=== PATIENT | male | born 1960 | race Caucasian/White ===

== ENCOUNTER 2018-01-09 21:48 | Emergency (ER) | payer SELFPAY ==
[2018-01-09 22:31] VITALS: O2SAT 98
[2018-01-09 23:54] LABS: BASO % 0.6 % (0.0-2.0); EOS # 0.1 K/uL (0.0-0.7); EOS % 2.8 % (0.0-4.0); HEMOGLOBIN 13.6 g/dL (12.0-18.0); LYMPH # 2.4 K/uL (1.0-4.3); LYMPH % 44.9 % (20.0-40.0); MEAN CELL VOLUME 87.9 fL (80.0-94.0); MEAN CORPUSCULAR HEMOGLOBIN 30.4 pg (27.0-31.0); MEAN CORPUSCULAR HGB CONC 34.6 g/dL (33.0-37.0); MEAN PLATELET VOLUME 8.8 fL (7.2-11.7); MONO # 0.4 K/uL (0.0-0.8); MONO % 8.3 % (0.0-10.0); NEUT # 2.3 K/uL (1.8-7.0); NEUT % 43.4 % (50.0-75.0); NRBC % 0.1 % (0.0-2.0); RBC 4.46 Mil/uL (4.40-5.90); RED CELL DISTRIBUTION WIDTH 12.6 % (11.5-14.5); WHITE BLOOD COUNT 5.3 K/uL (4.8-10.8)
--- NOTE | 2018-01-10 00:16 | C.PDOC ---
History Of Present Illness 57 year old male presents to the ED c/o chest pain that started earlier today. Patient denies SOB, fever, chills, cough, medical problems. Chief Complaint (Nursing): Chest Pain History Per: Patient History/Exam Limitations: no limitations Onset/Duration Of Symptoms: Hrs Current Symptoms Are (Timing): Still Present Associated Symptoms: Nausea Modifying Factors: None Exacerbating Factors: None Alleviating Factors: None Recent travel outside of the [place]: No Additional History Per: Patient Past Medical History Reviewed: Historical Data, Nursing Documentation, Vital Signs Vital Signs: Last Vital Signs Temp 97.9 F 01/09/18 22:15 Pulse 69 01/09/18 22:15 Resp 20 01/09/18 22:15 BP 136/88 01/09/18 22:15 Pulse Ox 98 01/10/18 00:18 - Medical History PMH: HTN, Hypercholesterolemia Surgical History: Back Surgery Family History: States: Unknown Family Hx - Social History Hx Tobacco Use: No Hx Alcohol Use: Yes Hx Substance Use: No - Immunization History Hx Tetanus Toxoid Vaccination: No Hx Influenza Vaccination: No Hx Pneumococcal Vaccination: No Review Of Systems Constitutional: Negative for: Fever, Chills Cardiovascular: Positive for: Chest Pain. Negative for: Palpitations Respiratory: Negative for: Cough, Shortness of Breath Gastrointestinal: Negative for: Nausea, Vomiting, Abdominal Pain Skin: Negative for: Rash Neurological: Negative for: Weakness, Numbness, Headache, Dizziness Physical Exam - Physical Exam Appears: Non-toxic, No Acute Distress Skin: Normal Color, Warm, Dry Head: Atraumatic, Normacephalic Nose: No Discharge, No Deformity Oral Mucosa: Moist Neck: Normal ROM, Supple Chest: Symmetrical Cardiovascular: Rhythm Regular, No Murmur Respiratory: Normal Breath Sounds, No Rales, No Rhonchi, No Wheezing Gastrointestinal/Abdominal: Soft, No Tenderness, No Guarding, No Rebound Extremity: Normal ROM, No Pedal Edema, No Deformity, No Swelling Neurological/Psych: Oriented x3, Normal Speech, Normal Cognition Gait: Steady ED Course And Treatment - Laboratory Results Result Diagrams: 01/09/18 23:51 01/09/18 23:51 ECG: Interpreted By Me, Viewed By Me ECG Rhythm: Sinus Rhythm, 1st Degree HB Interpretation Of ECst degree AV Block Rate From EC O2 Sat by Pulse Oximetry: 98 (On RA) Pulse Ox Interpretation: Normal Medical Decision Making Medical Decision Making: Impression: chest pain Plan: * EKG * Labs * CXR Disposition - Disposition Referrals: [facility] [Outside] [facility] [Outside] Disposition: HOME/ ROUTINE Disposition Time: 00:30 Condition: GOOD Additional Instructions: Thank you for letting us take care of you today. The emergency medical care you received today was directed at your acute symptoms. If you were prescribed any medication, please fill it and take as directed. It may take several days for your symptoms to resolve. Return to the Emergency Department if your symptoms worsen, do not improve, or if you have any other problems. Please contact your doctor or call one of the physicians/clinics you have been referred to that are listed on the Patient Visit Information form that is included in your discharge packet. Bring any paperwork you were given at discharge with you along with any medications you are taking to your follow up visit. Our treatment cannot replace ongoing medical care by a primary care provider (PCP) outside of the emergency department. Thank you for allowing the [facility] team to be part of your care today. Follow up next week in the clinic for outpatient care. Kathe por dejarnos atenderlo hoy. La atencin mdica de emergencia que recibi hoy estaba dirigida a mary lou sntomas agudos. Si le prescribieron algn medicamento, llnelo y tome segn las indicaciones. Mary Lou sntomas pueden tardar varios lerma en resolverse. Regrese al Departamento de Emergencia si mary lou s ntomas empeoran, no mejoran o si tiene algn otro problema. Comunquese con short mdico o llame a peyman de los mdicos / clnicas a los que lara sido referido que figura en el formulario de Informacin de visita del paciente que se incluye en short paquete de salty. Traiga todos los documentos que recibi al momento del salty junto con los medicamentos que est tomando en short visita de seguimiento. Nuestro tratamiento no puede reemplazar la atencin mdica en curso por parte de un proveedor de atencin primaria (PCP) fuera del departamento de emergencias. Kathe por permitir que el equipo de [facility] sea parte de short cuidado hoy. Seguimiento la prxima semana en la clnica para atencin ambulatoria. Instructions: Noncardiac Chest Pain (ED) Forms: Gen Discharge Inst [place] Islander Print Language: CZECH - Clinical Impression Clinical Impression: Non-cardiac chest pain - Scribe Statement The provider has reviewed the documentation as recorded by the Scribe Edwin Jiménez All medical record entries made by the Scribe were at my direction and personally dictated by me. I have reviewed the chart and agree that the record accurately reflects my personal performance of the history, physical exam, medical decision making, and the department course for this patient. I have also personally directed, reviewed, and agree with the discharge instructions and disposition.
[2018-01-10 00:19] LABS: ALB/GLOB RATIO 1.3 (1.0-2.1); ALBUMIN 4.7 g/dL (3.5-5.0); ALT/SGPT 43 U/L (21-72); AST/SGOT 23 U/L (17-59); BLOOD UREA NITROGEN 15 mg/dL (9-20); CALCIUM 9.4 mg/dl (8.6-10.4); GFR AFRICAN-AMERICAN > 60; GFR NON-AFRICAN AMERICAN > 60
[2018-01-10 00:50] VITALS: BP 135/86; PULSE 86; RESP 16; TEMP 98
--- NOTE | 2018-01-10 08:52 | RAD ---
HISTORY: chest pain COMPARISON: Chest x-ray performed 08/01/15. TECHNIQUE: Chest, one view. FINDINGS: LUNGS: No focal consolidation. Please note that chest x-ray has limited sensitivity for the detection of pulmonary masses. PLEURA: No significant pleural effusion identified. No definite pneumothorax . CARDIOVASCULAR: Heart size appears within normal limits. OSSEOUS STRUCTURES: No acute osseous abnormality identified. VISUALIZED UPPER ABDOMEN: Unremarkable. OTHER FINDINGS: None. IMPRESSION: No focal consolidation, significant pleural effusion, or definite pneumothorax identified.
--- NOTE | 2018-01-11 14:36 | CARD ---
APPROVED REPORT EKG Measurement Heart [id number] <Conclusion> Normal sinus rhythm Normal ECG
== END 2018-01-10 00:50 | disposition home or self-care (01) ==
LOC: C.ER 21:48
DX: R07.89 Other chest pain (principal)

== ENCOUNTER 2018-06-04 23:56 | Emergency (ER) | payer SELFPAY ==
[2018-06-05 00:30] VITALS: RESP 16; O2SAT 100
--- NOTE | 2018-06-05 01:40 | C.PDOC ---
History Of Present Illness 57 year old male with no significant PMHx presents to the ED c/o persistent SOB for the past month. Patient reports he was seen in [place] for the same complaints with normal labs and imaging. Patient is also c/o " numbness to his bilateral legs". Patient reports he was not given information at [place] for follow up. Patient denies CP, weakness, fever, chills, nausea, vomit. Time Seen by Provider: 06/05/18 00:54 Chief Complaint (Nursing): Shortness Of Breath History Per: Patient History/Exam Limitations: no limitations Onset/Duration Of Symptoms: Days Current Symptoms Are (Timing): Still Present Initiating Event: Other Quality: "Pain" Reports Recently: Seen In ED ([place] 20 days ago) Recent travel outside of the [place]: No Additional History Per: Patient Past Medical History Reviewed: Historical Data, Nursing Documentation, Vital Signs Vital Signs: Last Vital Signs Temp 98.6 F 06/05/18 06:09 Pulse 78 06/05/18 06:09 Resp 16 06/05/18 06:09 BP 165/79 H 06/05/18 06:09 Pulse Ox 100 06/05/18 06:09 - Medical History PMH: HTN, Hypercholesterolemia Surgical History: Back Surgery Family History: States: Unknown Family Hx - Social History Hx Tobacco Use: No Hx Alcohol Use: Yes Hx Substance Use: No - Immunization History Hx Tetanus Toxoid Vaccination: No Hx Influenza Vaccination: No Hx Pneumococcal Vaccination: No Review Of Systems Constitutional: Negative for: Fever, Chills Cardiovascular: Negative for: Chest Pain, Palpitations Respiratory: Positive for: Shortness of Breath. Negative for: Cough Gastrointestinal: Negative for: Vomiting, Abdominal Pain Skin: Negative for: Rash Physical Exam - Physical Exam Appears: Non-toxic, No Acute Distress Skin: Normal Color, Warm, Dry Head: Atraumatic, Normacephalic Eye(s): bilateral: Normal Inspection Oral Mucosa: Moist Neck: Normal ROM, Supple Chest: Symmetrical Cardiovascular: Rhythm Regular Respiratory: Normal Breath Sounds, No Rales, No Rhonchi, No Wheezing Gastrointestinal/Abdominal: Soft, No Tenderness, No Guarding, No Rebound Extremity: Normal ROM, No Tenderness, No Swelling Neurological/Psych: Oriented x3, Normal Speech Gait: Steady ED Course And Treatment - Laboratory Results Result Diagrams: 06/05/18 02:06 06/05/18 02:06 ECG: Interpreted By Me, Viewed By Me ECG Rhythm: Sinus Rhythm ECG Interpretation: Normal, No Acute Changes Rate From EC (BPM) O2 Sat by Pulse Oximetry: 100 (ON RA) Pulse Ox Interpretation: Normal - CT Scan/US CTA chest Other Rad Studies (CT/US): Read By Radiologist, Radiology Report Reviewed CT/US Interpretation: EXAM: CT Angiography Chest With Intravenous Contrast. CLINICAL HISTORY: 57 years old, male; Pain; Chest pain; Additional info: SOB. TECHNIQUE: Axial computed tomographic angiography images of the chest with intravenous contrast using. pulmonary embolism protocol. All CT scans at this facility use at least one of these dose optimization. techniques: automated exposure control; mA and/or kV adjustment per patient size (includes targeted. exams where dose is matched to clinical indication); or iterative reconstruction. 911 images are. submitted. Axial reformatted images are submitted in mediastinal and lung windows. MIP reconstructed images were created and reviewed. Coronal and sagittal reformatted images were created and reviewed. CONTRAST: 100 mL of [id number] administered intravenously. COMPARISON: No relevant prior studies available. FINDINGS: Pulmonary arteries : The pulmonary artery enhancement is less than 182 Hounsfield units and. heterogeneous enhancement which limits the examination. The segmental and subsegmental branch. pulmonary arteries are degraded by respiratory motion artifact and heterogeneous enhancement. As. shown no central pulmonary embolus is noted. Aorta: Ascending aortic aneurysm or ectasia measuring 3.7 cm. The arch and the descending. thoracic aorta demonstrate normal caliber. There is normal enhancement of the aorta. 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 Lungs: The visualized portions of major airways are patent. No mass. Pleural space: Unremarkable. No significant effusion. No pneumothorax. Heart: There is trace fluid in the superior pericardial recess. Possible cardiomegaly. Bones/joints: There is a disc osteophyte complex at T10-T11. No acute fracture. No dislocation. Soft tissues: Bilateral gynecomastia. Lymph nodes: Unremarkable. No enlarged lymph nodes. Stomach and bowel: Diverticulosis. Large amount of stool in the colon. Appendix: Normal appendix. IMPRESSION: 1. The pulmonary artery enhancement is less than 182 Hounsfield units and heterogeneous. enhancement which limits the examination. The segmental and subsegmental branch pulmonary. arteries are degraded by respiratory motion artifact and heterogeneous enhancement. As shown no. central pulmonary embolus is noted. 2. No active disease. Thank you for allowing us to participate in the care of your patient. Dictated and Authenticated by: Bruna Macias MD. 06/05/2018 5:40 AM Eastern Time ([place] & [place]) Medical Decision Making Medical Decision Making: Impression: SOB Plan: * EKG * Labs * CXR Disposition - Disposition Referrals: [facility] [Outside] Disposition: HOME/ ROUTINE Disposition Time: 06:27 Condition: FAIR Instructions: Shortness of Breath (Dyspnea) (DC) Forms: Shyp (Hebrew) Print Language: VIETNAMESE - Clinical Impression Clinical Impression: Dyspnea - Scribe Statement The provider has reviewed the documentation as recorded by the Scribe Edwin Jiménez All medical record entries made by the Scribe were at my direction and personally dictated by me. I have reviewed the chart and agree that the record accurately reflects my personal performance of the history, physical exam, medical decision making, and the department course for this patient. I have also personally directed, reviewed, and agree with the discharge instructions and disposition.
[2018-06-05 02:09] LABS: BASO % 0.7 % (0.0-2.0); EOS # 0.2 K/uL (0.0-0.7); EOS % 2.7 % (0.0-4.0); HEMOGLOBIN 13.4 g/dL (12.0-18.0); LYMPH # 3.1 K/uL (1.0-4.3); LYMPH % 43.4 % (20.0-40.0); MEAN CELL VOLUME 89.1 fL (80.0-94.0); MEAN CORPUSCULAR HEMOGLOBIN 29.7 pg (27.0-31.0); MEAN CORPUSCULAR HGB CONC 33.3 g/dL (33.0-37.0); MEAN PLATELET VOLUME 8.6 fL (7.2-11.7); MONO # 0.5 K/uL (0.0-0.8); MONO % 7.4 % (0.0-10.0); NEUT # 3.3 K/uL (1.8-7.0); NEUT % 45.8 % (50.0-75.0); NRBC % 0.1 % (0.0-2.0); RBC 4.49 Mil/uL (4.40-5.90); RED CELL DISTRIBUTION WIDTH 12.8 % (11.5-14.5); WHITE BLOOD COUNT 7.2 K/uL (4.8-10.8)
[2018-06-05 02:31] LABS: BLOOD UREA NITROGEN 18 mg/dL (9-20); GFR AFRICAN-AMERICAN > 60; GFR NON-AFRICAN AMERICAN > 60
[2018-06-05 02:32] LABS: ALB/GLOB RATIO 1.5 (1.0-2.1); ALBUMIN 4.8 g/dL (3.5-5.0); ALT/SGPT 53 U/L (21-72); AST/SGOT 27 U/L (17-59); B-TYPE NATRIURETIC PEPTIDE 29.3 pg/mL (0-900); CALCIUM 9.8 mg/dl (8.6-10.4)
[2018-06-05] MEDS ORDERED: Barium Sulfate for Susp 98% w/w 340g Bottle ONE (03:17)
[2018-06-05] MEDS ORDERED: Iodixanol 320 MG/ML 100 ML BOTTLE IV ONE (03:18)
[2018-06-05 06:10] VITALS: BP 165/79; PULSE 78; TEMP 98.6
--- NOTE | 2018-06-05 12:19 | CT ---
PROCEDURE: CT Chest with contrast (Pulmonary Angiogram) HISTORY: Shortness of breath COMPARISON: None available. TECHNIQUE: Axial computed tomography images were obtained of the chest in the pulmonary arterial phase of enhancement. Coronal and sagittal reformatted images were created and reviewed. Intravenous contrast dose: 100 cc Visipaque 320 Radiation dose: Total exam DLP = 342.12 mGy-cm. This CT exam was performed using one or more of the following dose reduction techniques: Automated exposure control, adjustment of the mA and/or kV according to patient size, and/or use of iterative reconstruction technique. FINDINGS: PULMONARY ARTERIES: Suboptimal enhancement limiting evaluation. No evidence of central pulmonary embolus however. Note that the distal segmental and proximal subsegmental branches are poorly delineated pulmonary trunk measures approximately 22 mm. AORTA: No acute findings. No thoracic aortic aneurysm. Ascending thoracic aorta measures approximately 3.7 cm and descending thoracic aorta measures approximately 2.26 cm LUNGS: Unremarkable. No nodule, mass or pulmonary consolidation. PLEURAL SPACES: Unremarkable. No effusion or pneumothorax. HEART: Heart size normal . There appears to be a small amount of fluid within the cleft between the ascending thoracic aorta and pulmonary trunk as well as superior pericardial recess LYMPH NODES: No lymphadenopathy. BONES, CHEST WALL: . Minor multilevel degenerative spondylosis of the thoracic spine. There are no acute compression fractures no retropulsed fragments. Chronic appearing Schmorl's node changes seen along superior L2 endplate Minor changes of gynecomastia. OTHER FINDINGS: Unremarkable. IMPRESSION: Slightly limited study. No evidence of acute central pulmonary embolus
--- NOTE | 2018-06-05 16:18 | RAD ---
PROCEDURE: CHEST RADIOGRAPH, 1 VIEW HISTORY: SOB COMPARISON: Comparison chest 01/09/2018 FINDINGS: LUNGS: Clear. PLEURA: No pneumothorax or pleural fluid seen. CARDIOVASCULAR: Normal. OSSEOUS STRUCTURES: No significant abnormalities. VISUALIZED UPPER ABDOMEN: Normal. OTHER FINDINGS: None. IMPRESSION: No active disease.
== END 2018-06-05 06:12 | disposition home or self-care (01) ==
LOC: C.ER 23:56
DX: R06.00 Dyspnea, unspecified (principal)
CPT/HCPCS: 71045; 71275; 80053; 83880; 84484; 85025; 85378; 99284; Q9967

== ENCOUNTER 2018-06-05 12:14 | Emergency (ER) | payer SELFPAY ==
[2018-06-05 12:26] VITALS: RESP 18; TEMP 98
[2018-06-05] MEDS ORDERED: Albuterol 0.083% Inhal Sol (2.5 mg/3 mL) UD IH STA (12:38)
[2018-06-05] MEDS ORDERED: Albuterol 0.083% Inhal Sol (2.5 mg/3 mL) UD ONE (13:05)
[2018-06-05 13:19] LABS: BASO # 0.1 K/uL (0.0-0.2); BASO % 1.1 % (0.0-2.0); EOS # 0.1 K/uL (0.0-0.7); EOS % 1.5 % (0.0-4.0); HEMOGLOBIN 14.9 g/dL (12.0-18.0); LYMPH # 1.8 K/uL (1.0-4.3); LYMPH % 31.9 % (20.0-40.0); MEAN CELL VOLUME 88.7 fL (80.0-94.0); MEAN CORPUSCULAR HEMOGLOBIN 30.3 pg (27.0-31.0); MEAN CORPUSCULAR HGB CONC 34.2 g/dL (33.0-37.0); MEAN PLATELET VOLUME 8.7 fL (7.2-11.7); MONO # 0.5 K/uL (0.0-0.8); NEUT # 3.1 K/uL (1.8-7.0); NEUT % 56.5 % (50.0-75.0); RBC 4.9 Mil/uL (4.40-5.90); RED CELL DISTRIBUTION WIDTH 12.7 % (11.5-14.5); WHITE BLOOD COUNT 5.5 K/uL (4.8-10.8)
[2018-06-05 13:37] LABS: ALB/GLOB RATIO 1.3 (1.0-2.1); ALBUMIN 5.2 g/dL (3.5-5.0); ALT/SGPT 50 U/L (21-72); AST/SGOT 27 U/L (17-59); BLOOD UREA NITROGEN 14 mg/dL (9-20); CALCIUM 10.4 mg/dl (8.6-10.4); GFR AFRICAN-AMERICAN > 60; GFR NON-AFRICAN AMERICAN > 60
[2018-06-05] MEDS ORDERED: Albuterol-Ipratrop 3 mg / 0.5 (3 ml) UD ONE ×2 (13:38→15:34)
[2018-06-05 13:41] LABS: B-TYPE NATRIURETIC PEPTIDE 48.2 pg/mL (0-900); CK-MB 1.54 ng/mL (0.0-3.38)
[2018-06-05 14:08] VITALS: O2SAT 100
--- NOTE | 2018-06-05 14:26 | NM ---
COMPARISON: June 05, 2018. CT angiogram for pulmonary embolism. Summary of findings on the comparison examination: No evidence of acute central pulmonary embolus TECHNIQUE: 6.6 mCi technetium 99-m Xe-133 Gas. 0.2 mCI technetium 99-m MAA administered intravenously. FINDINGS: VENTILATION COMPONENT: Normal. PERFUSION COMPONENT: Heterogeneous distribution of radionuclide. No geographic, segmental, lobar abnormalities apparent on the present examination. IMPRESSION: Low probability ventilation perfusion scan for pulmonary embolism.
--- NOTE | 2018-06-05 14:59 | C.PDOC ---
History Of Present Illness 57 year old male brought to the ED by EMS for evaluation. Patient states he was at the [facility] when he started feeling generalized weakness and some shortness of breath. Patient was seen overnight in the ER for similar complaints , blood work and CTA chest were done, both unremarkable. Patient denies chest pain, palpitations, syncope, cough, fever, visual changes, nausea, vomiting, facial droop, slurred speech, extremity weakness, gait changes. Time Seen by Provider: 06/05/18 12:16 Chief Complaint (Nursing): Syncope History Per: Patient History/Exam Limitations: no limitations Onset/Duration Of Symptoms: Hrs Current Symptoms Are (Timing): Still Present Past Medical History Reviewed: Historical Data, Nursing Documentation, Vital Signs Vital Signs: Last Vital Signs Temp 98 F 06/05/18 15:35 Pulse 70 06/05/18 15:35 Resp 18 06/05/18 15:35 BP 167/96 H 06/05/18 15:35 Pulse Ox 100 06/05/18 15:35 - Medical History PMH: HTN, Hypercholesterolemia Surgical History: Back Surgery Family History: States: No Known Family Hx - Social History Hx Tobacco Use: No Hx Alcohol Use: Yes Hx Substance Use: No - Immunization History Hx Tetanus Toxoid Vaccination: No Hx Influenza Vaccination: No Hx Pneumococcal Vaccination: No Review Of Systems Constitutional: Positive for: Weakness Cardiovascular: Negative for: Chest Pain, Palpitations Respiratory: Positive for: Shortness of Breath. Negative for: Cough Gastrointestinal: Negative for: Nausea, Vomiting, Abdominal Pain, Diarrhea Neurological: Negative for: Weakness, Numbness, Change in Speech, Altered Mental Status, Headache, Dizziness Physical Exam - Physical Exam Appears: Well, Non-toxic, Other (appears mildly uncomfortable, speaking in full sentences) Skin: Normal Color, Warm, Dry, No Rash Head: Atraumatic, Normacephalic Eye(s): bilateral: Normal Inspection, PERRL, EOMI Oral Mucosa: Moist Neck: Supple Cardiovascular: Rhythm Regular Respiratory: Normal Breath Sounds, No Rales, No Rhonchi, No Wheezing Gastrointestinal/Abdominal: Normal Exam, Bowel Sounds, Soft, No Tenderness Extremity: Normal ROM, No Pedal Edema, No Calf Tenderness Pulses: Left Dorsalis Pedis: Normal, Right Dorsalis Pedis: Normal Neurological/Psych: Oriented x3, Normal Speech, Normal Cognition, Normal Cranial Nerves, No Cerebellar Signs, Normal Motor, Normal Sensation, Normal Reflexes Gait: Steady ED Course And Treatment - Laboratory Results Result Diagrams: 06/05/18 13:13 06/05/18 13:13 ECG: Interpreted By Me, Viewed By Me ECG Rhythm: Sinus Rhythm ECG Interpretation: Normal Interpretation Of ECG: Normal sinus rhythm, normal axis, no acute ST/T changes Rate From EC (bpm) O2 Sat by Pulse Oximetry: 100 (RA) Pulse Ox Interpretation: Normal - CT Scan/US VQ SCAN Other Rad Studies (CT/US): Read By Radiologist, Radiology Report Reviewed CT/US Interpretation: Accession No. : [id number]. Patient Name / ID : MARIALUISA BUTLER / [id number]. Exam Date : 06/05/2018 13:23:23 ( Approved ). Study Comment : Sex / Age : M / [id number]. Creator : Nadir Calabrese MD. Dictator : Nadir Calabrese MD. Cyber Security Architect : Direct Mail Manager : Nadir Calabrese MD. Approver2 : Report Date : 06/05/2018 14:24:42. My Comment : . COMPARISON: June 05, 2018. CT angiogram for pulmonary embolism. Summary of findings on the comparison examination: No evidence of acute central pulmonary embolus. TECHNIQUE: 6.6 mCi technetium 99-m Xe-133 Gas. 0.2 mCI technetium 99-m MAA administered intravenously. FINDINGS: VENTILATION COMPONENT: Normal. PERFUSION COMPONENT: Heterogeneous distribution of radionuclide. No geographic, segmental, lobar abnormalities apparent on the present examination. IMPRESSION: Low probability ventilation perfusion scan for pulmonary embolism. Progress Note: Blood work, EKG ordered and reviewed. Prior visit reviewed, CTA chest showed no central PE but was suboptimal study - VQ scan ordered. ? symptome due to bronchospasm vs anxiety - PO Prednisone and 1 neb treatment given. Reevaluation Time: 15:55 Reassessment Condition: Improved (On reassessment, patient is resting comfortably and states he feels better. Blood work, EKG and VQ scan unremarkable. Patient is well appearing with normal vitals. He was given Rx for prednisone, already has albuterol inhaler. Patient instructed to follow up with PMD/clinic in 1-2 days. He understands he should return to ED if symptoms worsen.) Disposition Counseled Patient/Family Regarding: Studies Performed, Diagnosis, Need For Followup, Rx Given - Disposition Referrals: [facility] [Outside] Disposition: HOME/ ROUTINE Disposition Time: 16:00 Condition: STABLE Additional Instructions: FOLLOW UP WITH YOUR DOCTOR/CLINIC IN 1-2 DAYS USE MEDICATIONS DIRECTED RETURN TO EMERGENCY ROOM IF SYMPTOMS WORSEN SEGUIMIENTO CON MIMS MDICO / CHARLIEA EN 1-2 HANSON USE MEDICAMENTOS SEGN LO INDICADO REGRESE AL RAEGAN DE EMERGENCIA SI LOS SNTOMAS EMPEORAN Prescriptions: predniSONE [predniSONE Tab] 40 mg PO DAILY #8 tab Instructions: Shortness of Breath (Dyspnea) (DC) Forms: General Discharge Instructions, [facility] (Tajik) Print Language: JORDANIAN - POA Present On Arrival: None - Clinical Impression Clinical Impression: SOB (shortness of breath) - Scribe Statement The provider has reviewed the documentation as recorded by the Scribstella Joshi All medical record entries made by the Scribe were at my direction and personally dictated by me. I have reviewed the chart and agree that the record accurately reflects my personal performance of the history, physical exam, medical decision making, and the department course for this patient. I have also personally directed, reviewed, and agree with the discharge instructions and disposition.
[2018-06-05 15:36] VITALS: BP 167/96; PULSE 70
== END 2018-06-05 16:04 | disposition home or self-care (01) ==
LOC: C.ER 12:14
DX: R06.02 Shortness of breath (principal); I10 Essential (primary) hypertension; E78.00 Pure hypercholesterolemia, unspecified
CPT/HCPCS: 78582; 80053; 82550; 82553; 82948; 83880; 84484; 85025; 94640; 99285; A9540; A9558